=== PATIENT | male | born 1990 | race Caucasian/White ===

== ENCOUNTER 2018-05-01 11:26 | Emergency (ER) | payer SELFPAY ==
[~2018-05-01] VITALS: Ht 182.9 cm; Wt 89.8 kg
[~2018-05-01 11:26] MED LIST: ACHD5005 PO; AMOX500C2 PO; BENZ100C18 PO; CIPR7.5D2 OT; DOXY100C2 PO; HYDR-3720 PO; HYDR1TAB PO; PENI500T PO; SULF1TAB38 PO
--- OUTSIDE RECORDS SUMMARY | 2018-05-01 11:30 | XMS REPORT ---
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 43268829 ALLERGIES No Known Allergies ENCOUNTERS Encounter Location Date Diagnosis [address] [id number] Dec, Blister (nonthermal) of oral cavity, initial encounter S00.522A ; Chronic gingivitis, plaque induced K05.10 and Acute pain of left shoulder M25.512 [id number] [place] [address] November, Constipation K59.[address] [id number] 15 Nov, 2017 Low back pain M54.5 ; Other chronic pain G89.29 ; Blister (nonthermal) of oral cavity, initial encounter S00.522A ; Chronic gingivitis, plaque induced K05.10 and Bilateral otitis media with effusion H65.93 [facility] [address] [address] November, Other chronic pain G89.29 [id number] [place] [address] Oct, Mood disorder F39 [address] [id number] Oct, Low back pain M54.5 ; Other chronic pain G89.29 and Mood disorder F39 [facility] [address] [place] [id number] Apr, Mood disorder F39 [facility] [address] [facility] [id number], [place] [address] 19 Mar, 2017 Mood disorder F39 [facility] [address] [facility] [id number] [address] 05 Mar, 2017 Mood disorder F39 and Slow transit constipation K59.01 [facility] [address] [place] [id number] Jul, Mood disorder F39 ; Slow transit constipation K59.01 and Aphthous ulcer of mouth K12.0 [place] [place] [id number] Jun, Slow transit constipation K59.01 and Mood disorder F39 [facility] [address] [id number] [id number] Dec, Dental examination V72.2 IMMUNIZATIONS No Known Immunizations SOCIAL HISTORY Never Assessed REASON FOR VISIT half-way PLAN OF CARE VITAL SIGNS Height 72 in 2017-12-27 Weight 232 lbs 2017-12-27 Heart Rate 72 bpm 2017-12-27 Respiratory Rate 16 2017-12-27 BMI 31.46 kg/m2 2017-12-27 Blood pressure systolic 118 mmHg 2017-12-27 Blood pressure diastolic 54 mmHg 2017-12-27 MEDICATIONS Medication Instructions Dosage Frequency Start Date End Date Duration Status Augmentin 875-125 MG Orally 2 times a day 1 tablet 12h Dec,Dec 10 day(s) Active PredniSONE 20 mg Orally Once a day 2 tablets 24h Dec, Dec, 05 days Active RESULTS No Results PROCEDURES No Known procedures INSTRUCTIONS MEDICATIONS ADMINISTERED No Known Medications
--- OUTSIDE RECORDS SUMMARY | 2018-05-01 11:31 | XMS REPORT ---
Author Author PRESLEY ANN Organization 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 [id number] [place] [address] Oct, Mood disorder F39 [address] [place] [id number] Oct, Low back pain M54.5 ; Other chronic pain G89.29 and Mood disorder F39 [facility] [address] [place], [place] [id number] Apr, Mood disorder F39 [facility] [address] [place] [address] Mar, Mood disorder F39 [facility] [id number] [place] [address] Mar, Mood disorder F39 and Slow transit constipation K59.01 [address] [place] [id number] Jul, Mood disorder F39 ; Slow transit constipation K59.01 and Aphthous ulcer of mouth K12.[address] [id number] Jun, Slow transit constipation K59.01 and Mood disorder F39 [facility] [address] [id number] [id number] Dec, Dental examination V72.2 IMMUNIZATIONS No Known Immunizations SOCIAL HISTORY Never Assessed REASON FOR VISIT group home rx PLAN OF CARE VITAL SIGNS MEDICATIONS Medication Instructions Dosage Frequency Start Date End Date Duration Status Imipramine HCl 50 MG Orally at bedtime 1 tablet at bedtime Jul, 30 day(s) Active RESULTS No Results PROCEDURES No Known procedures INSTRUCTIONS MEDICATIONS ADMINISTERED No Known Medications
--- OUTSIDE RECORDS SUMMARY | 2018-05-01 11:31 | XMS REPORT ---
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 61916090 Problem Slow transit constipation K59.01 Active 74030902 Problem Mood disorder F39 Active 84016962 ALLERGIES No Information ENCOUNTERS Encounter Location Date Diagnosis [address] [place] [id number] Oct, Low back pain M54.5 ; Other chronic pain G89.29 and Mood disorder F39 [address] [place] [id number] Apr, Mood disorder F39 [facility] [id number] [address] Mar, Mood disorder F39 [facility] [id number] [address] Mar, Mood disorder F39 and Slow transit constipation K59.01 [address] [place] [id number] Jul, Mood disorder F39 ; Slow transit constipation K59.01 and Aphthous ulcer of mouth K12.0 [place] [address] [place] [phone] Jun, Slow transit constipation K59.01 and Mood disorder F39 [facility] [id number] [place] [id number] Dec, Dental examination V72.2 IMMUNIZATIONS No Known Immunizations SOCIAL HISTORY Never Assessed REASON FOR VISIT [facility] rx PLAN OF CARE VITAL SIGNS MEDICATIONS Medication Instructions Dosage Frequency Start Date End Date Duration Status MiraLax - Orally Once a day as needed 17 grams 05 Mar, 2017 Active Imipramine HCl 25 MG Orally at bedtime 1 tablet at bedtime Jul, 30 day(s) Active RESULTS No Results PROCEDURES No Known procedures INSTRUCTIONS MEDICATIONS ADMINISTERED No Known Medications
--- OUTSIDE RECORDS SUMMARY | 2018-05-01 11:31 | XMS REPORT ---
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 27149669 ALLERGIES No Known Allergies ENCOUNTERS Encounter Location Date Diagnosis [address] [id number] Dec, Blister (nonthermal) of oral cavity, initial encounter S00.522A ; Chronic gingivitis, plaque induced K05.10 and Acute pain of left shoulder M25.512 [id number] [place] [address] November, Constipation K59.[address] [id number] 15 Nov, 2017 Low back pain M54.5 ; Other chronic pain G89.29 ; Blister (nonthermal) of oral cavity, initial encounter S00.522A ; Chronic gingivitis, plaque induced K05.10 and Bilateral otitis media with effusion H65.93 [facility] [address] [address] November, Other chronic pain G89.29 [id number] [place] [address] Oct, Mood disorder F39 [address] [id number] Oct, Low back pain M54.5 ; Other chronic pain G89.29 and Mood disorder F39 [facility] [address] [place] [id number] 10 Apr, 2017 Mood disorder F39 [facility] [address] [facility] [id number] [address] 19 Mar, 2017 Mood disorder F39 [facility] [address] [facility] [id number] [address] 05 Mar, 2017 Mood disorder F39 and Slow transit constipation K59.01 [facility] [address] [place] [id number] Jul, Mood disorder F39 ; Slow transit constipation K59.01 and Aphthous ulcer of mouth K12.0 [address] [place] [id number] Jun, Slow transit constipation K59.01 and Mood disorder F39 [facility] [address] [id number] [id number] Dec, Dental examination V72.2 IMMUNIZATIONS No Known Immunizations SOCIAL HISTORY Never Assessed REASON FOR VISIT RESIDENTIAL PLAN OF CARE VITAL SIGNS Height 72 in 2017-12-06 Weight 224 lbs 2017-12-06 Heart Rate 60 bpm 2017-12-06 Respiratory Rate 16 2017-12-06 BMI 30.38 kg/m2 2017-12-06 Blood pressure systolic 116 mmHg 2017-12-06 Blood pressure diastolic 70 mmHg 2017-12-06 MEDICATIONS Medication Instructions Dosage Frequency Start Date End Date Duration Status Diclofenac Sodium 75 MG Orally Twice a day 1 tablet with food or milk 12h November, Dec, 30 day(s) Active PredniSONE 20 mg Orally Once a day 2 tablets 24h November, November, 05 days Active Amoxicillin 500 mg Orally 2 times a day 2 tablets 12h November,November 10 day(s) Active RESULTS No Results PROCEDURES No Known procedures INSTRUCTIONS MEDICATIONS ADMINISTERED No Known Medications
--- OUTSIDE RECORDS SUMMARY | 2018-05-01 11:31 | XMS REPORT ---
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 04977635 Problem Slow transit constipation K59.01 Active 32720753 Problem Mood disorder F39 Active 85811606 ALLERGIES Unknown Allergies SOCIAL HISTORY No smoking Hx information available PLAN OF CARE VITAL SIGNS Height 72 in 2016-07-06 Weight 218 lbs 2016-07-06 Heart Rate 64 bpm 2016-07-06 Respiratory Rate 16 2016-07-06 BMI 29.56 kg/m2 2016-07-06 Blood pressure systolic 118 mmHg 2016-07-06 Blood pressure diastolic 80 mmHg 2016-07-06 MEDICATIONS Medication Instructions Dosage Frequency Start Date End Date Duration Status Colace 100 MG Orally Once a day 1 capsule as needed 24h Jun, Jul, 30 day(s) Active Mirtazapine 15 MG Orally Once a day 1 tablet at bedtime 24h Jun, 30 day(s) Active RESULTS No Results PROCEDURES Procedure Date Ordered Related Diagnosis Body Site Office Visit, Est Pt., Level 2 Jul 06, 2016 IMMUNIZATIONS No Known Immunizations
--- OUTSIDE RECORDS SUMMARY | 2018-05-01 11:31 | XMS REPORT ---
Author Author PRESLEY ANN Organization 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 51971572 ALLERGIES No Known Allergies ENCOUNTERS Encounter Location Date Diagnosis [address] [id number] Dec, Blister (nonthermal) of oral cavity, initial encounter S00.522A ; Chronic gingivitis, plaque induced K05.10 and Acute pain of left shoulder M25.512 [place] [id number] [place] [address] November, Constipation K59.[address] [id number] 15 Nov, 2017 Low back pain M54.5 ; Other chronic pain G89.29 ; Blister (nonthermal) of oral cavity, initial encounter S00.522A ; Chronic gingivitis, plaque induced K05.10 and Bilateral otitis media with effusion H65.93 [facility] [address] [address] November, Other chronic pain G89.29 [id number] [place] [address] Oct, Mood disorder F39 [address] [id number] Oct, Low back pain M54.5 ; Other chronic pain G89.29 and Mood disorder F39 [facility] [address] [place] [id number] Apr, Mood disorder F39 [facility] [id number] [address] Mar, Mood disorder F39 [facility] [id number] [address] 05 Mar, 2017 Mood disorder F39 and Slow transit constipation K59.01 [facility] [address] [place] [id number] Jul, Mood disorder F39 ; Slow transit constipation K59.01 and Aphthous ulcer of mouth K12.0 [address] [place] [address] Jun, Slow transit constipation K59.01 and Mood disorder F39 [facility] [address] [id number] [address] Dec, Dental examination V72.2 IMMUNIZATIONS No Known Immunizations SOCIAL HISTORY Never Assessed REASON FOR VISIT long-term rx PLAN OF CARE VITAL SIGNS MEDICATIONS Medication Instructions Dosage Frequency Start Date End Date Duration Status Meloxicam 7.5 MG Orally twice a day 1 tablet 12h November, 14 days Active RESULTS No Results PROCEDURES No Known procedures INSTRUCTIONS MEDICATIONS ADMINISTERED No Known Medications
--- OUTSIDE RECORDS SUMMARY | 2018-05-01 11:31 | XMS REPORT ---
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 47190287 Problem Slow transit constipation K59.01 Active 19140796 Problem Mood disorder F39 Active 60617335 ALLERGIES No Known Allergies ENCOUNTERS Encounter Location Date Diagnosis [facility] [address] [address] November, Other chronic pain G89.29 [facility] [address] [address] Oct, Mood disorder F39 [facility] [address] [place], [place] [id number] Oct, Low back pain M54.5 ; Other chronic pain G89.29 and Mood disorder F39 [facility] [address] [place], [place] [id number] Apr, Mood disorder F39 [facility] [id number] [address] Mar, Mood disorder F39 [facility] [id number] [place] [address] Mar, Mood disorder F39 and Slow transit constipation K59.01 [facility] [address] [place], [place] [id number] Jul, Mood disorder F39 ; Slow transit constipation K59.01 and Aphthous ulcer of mouth K12.0 [facility] [address] [place], [place] [address] Jun, Slow transit constipation K59.01 and Mood disorder F39 [facility] [address] [facility] [id number] [address] Dec, Dental examination V72.2 IMMUNIZATIONS No Known Immunizations SOCIAL HISTORY Never Assessed REASON FOR VISIT RETIREMENT PLAN OF CARE VITAL SIGNS Height 72 in 2017-05-03 Weight 262 lbs 2017-05-03 Heart Rate 76 bpm 2017-05-03 Respiratory Rate 16 2017-05-03 BMI 35.53 kg/m2 2017-05-03 Blood pressure systolic 110 mmHg 2017-05-03 Blood pressure diastolic 64 mmHg 2017-05-03 MEDICATIONS Medication Instructions Dosage Frequency Start Date End Date Duration Status Paroxetine HCl 20 MG Orally Once a day 1 tablet in the morning 24h Apr, 30 day(s) Active Mirtazapine 30 MG Orally at bedtime 1 tablet at bedtime Apr, 30 day(s) Active RESULTS No Results PROCEDURES No Known procedures INSTRUCTIONS MEDICATIONS ADMINISTERED No Known Medications
--- OUTSIDE RECORDS SUMMARY | 2018-05-01 11:31 | XMS REPORT ---
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 32635237 ALLERGIES No Known Allergies ENCOUNTERS Encounter Location Date Diagnosis [address] [id number] Dec, Blister (nonthermal) of oral cavity, initial encounter S00.522A ; Chronic gingivitis, plaque induced K05.10 and Acute pain of left shoulder M25.512 [id number] [place] [address] November, Constipation K59.[address] [id number] 15 Nov, 2017 Low back pain M54.5 ; Other chronic pain G89.29 ; Blister (nonthermal) of oral cavity, initial encounter S00.522A ; Chronic gingivitis, plaque induced K05.10 and Bilateral otitis media with effusion H65.93 [facility] [address], [place] [address] November, Other chronic pain G89.29 [id number] [place] [address] Oct, Mood disorder F39 [address] [id number] Oct, Low back pain M54.5 ; Other chronic pain G89.29 and Mood disorder F39 [facility] [address] [place], [place] [address] Apr, Mood disorder F39 [facility] [address] [facility] [id number], [place] [address] 19 Mar, 2017 Mood disorder F39 [facility] [address] [facility] [id number] [address] 05 Mar, 2017 Mood disorder F39 and Slow transit constipation K59.01 [facility] [address] [place], [place] [id number] Jul, Mood disorder F39 ; Slow transit constipation K59.01 and Aphthous ulcer of mouth K12.0 [address] [place] [address] Jun, Slow transit constipation K59.01 and Mood disorder F39 [facility] [address] [id number] [address] Dec, Dental examination V72.2 IMMUNIZATIONS No Known Immunizations SOCIAL HISTORY Never Assessed REASON FOR VISIT intermediate PLAN OF CARE VITAL SIGNS Height 72 in 2017-11-01 Weight 226 lbs 2017-11-01 Heart Rate 80 bpm 2017-11-01 Respiratory Rate 16 2017-11-01 BMI 30.65 kg/m2 2017-11-01 Blood pressure systolic 100 mmHg 2017-11-01 Blood pressure diastolic 68 mmHg 2017-11-01 MEDICATIONS Medication Instructions Dosage Frequency Start Date End Date Duration Status Mirtazapine 30 MG Orally at bedtime 1 tablet at bedtime Apr, 30 day(s) Active Naproxen 500 MG Orally every 12 hrs 1 tablet with food or milk as needed 12h Oct, Active Paroxetine HCl 20 MG Orally Once a day 1 tablet in the morning 24h Apr, 30 day(s) Active RESULTS No Results PROCEDURES No Known procedures INSTRUCTIONS MEDICATIONS ADMINISTERED No Known Medications
--- OUTSIDE RECORDS SUMMARY | 2018-05-01 11:31 | XMS REPORT ---
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 00857113 ALLERGIES No Known Allergies ENCOUNTERS Encounter Location Date Diagnosis [address] [id number] Dec, Blister (nonthermal) of oral cavity, initial encounter S00.522A ; Chronic gingivitis, plaque induced K05.10 and Acute pain of left shoulder M25.512 [place] [id number] [place] [address] November, Constipation K59.[address] [id number] 15 Nov, 2017 Low back pain M54.5 ; Other chronic pain G89.29 ; Blister (nonthermal) of oral cavity, initial encounter S00.522A ; Chronic gingivitis, plaque induced K05.10 and Bilateral otitis media with effusion H65.93 [facility] [address]100[place] [address] November, Other chronic pain G89.29 [address] [id number] [place] [address] Oct, Mood disorder F39 [address] [id number] Oct, Low back pain M54.5 ; Other chronic pain G89.29 and Mood disorder F39 [facility] [address] [place], [place] [id number] Apr, Mood disorder F39 [facility] [id number] [address] Mar, Mood disorder F39 [facility] [id number] [address] 05 Mar, 2017 Mood disorder F39 and Slow transit constipation K59.01 [facility] [address] [place], [place] [address] Jul, Mood disorder F39 ; Slow transit constipation K59.01 and Aphthous ulcer of mouth K12.0 [place] [address] [place] [id number] Jun, Slow transit constipation K59.01 and Mood disorder F39 [facility] [address] [id number] [id number] Dec, Dental examination V72.2 IMMUNIZATIONS No Known Immunizations SOCIAL HISTORY Never Assessed REASON FOR VISIT residential rx PLAN OF CARE VITAL SIGNS MEDICATIONS Medication Instructions Dosage Frequency Start Date End Date Duration Status Lexapro 10 MG Orally Once a day 1 tablet 24h Oct, 30 day(s) Active RESULTS No Results PROCEDURES No Known procedures INSTRUCTIONS MEDICATIONS ADMINISTERED No Known Medications
--- OUTSIDE RECORDS SUMMARY | 2018-05-01 11:31 | XMS REPORT ---
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 41280159 ALLERGIES No Known Allergies ENCOUNTERS Encounter Location Date Diagnosis [address] [id number] Dec, Blister (nonthermal) of oral cavity, initial encounter S00.522A ; Chronic gingivitis, plaque induced K05.10 and Acute pain of left shoulder M25.512 [place] [id number] [place] [phone] November, Constipation K59.[address] [id number] 15 Nov, 2017 Low back pain M54.5 ; Other chronic pain G89.29 ; Blister (nonthermal) of oral cavity, initial encounter S00.522A ; Chronic gingivitis, plaque induced K05.10 and Bilateral otitis media with effusion H65.93 [facility] [address] [address] November, Other chronic pain G89.29 [place] [id number] [place] [address] Oct, Mood disorder F39 [address] [id number] Oct, Low back pain M54.5 ; Other chronic pain G89.29 and Mood disorder F39 [facility] [address] [place], [place] [id number] Apr, Mood disorder F39 [facility] [id number] [address] 19 Mar, 2017 Mood disorder F39 [facility] [address] [facility] [id number] [address] 05 Mar, 2017 Mood disorder F39 and Slow transit constipation K59.01 [facility] [address] [place] [id number] Jul, Mood disorder F39 ; Slow transit constipation K59.01 and Aphthous ulcer of mouth K12.0 [place] [address] [place] [id number] Jun, Slow transit constipation K59.01 and Mood disorder F39 [facility] [address] [id number] [id number] Dec, Dental examination V72.2 IMMUNIZATIONS No Known Immunizations SOCIAL HISTORY Never Assessed REASON FOR VISIT long-term rx PLAN OF CARE VITAL SIGNS MEDICATIONS Medication Instructions Dosage Frequency Start Date End Date Duration Status Multivitamin Men - as directed November, Active MiraLax - Orally once daily as needed 1 packet mixed with 8 ounces of fluid November, Dec, 30 day(s) Active RESULTS No Results PROCEDURES No Known procedures INSTRUCTIONS MEDICATIONS ADMINISTERED No Known Medications
[2018-05-01 11:35] VITALS: BP 136/89
[2018-05-01] MEDS ORDERED: NS IV 1000 ML 1,000 ML IV ONE (11:46)
[2018-05-01 12:12] LABS: BASOPHILS % (AUTO) 0 % (0-10); EOSINOPHILS % (AUTO) 0 % (0-10); HEMATOCRIT 44 % (40-54); LYMPHOCYTES # (AUTO) 1.8 X 10^3 (1.0-4.0); LYMPHOCYTES % (AUTO) 14 % (12-44); MEAN CORPUSCULAR HEMOGLOBIN 31 PG (25-34); MEAN CORPUSCULAR HGB CONC 37 G/DL (32-36); MEAN CORPUSCULAR VOLUME 84 FL (80-99); MONOCYTES # (AUTO) 0.9 X 10^3 (0.0-1.0); MONOCYTES % (AUTO) 7 % (0-12); NEUTROPHILS # (AUTO) 10.3 X 10^3 (1.8-7.8); NEUTROPHILS % (AUTO) 79 % (42-75); PLATELET COUNT 276 10^3/uL (130-400); RED CELL DISTRIBUTION WIDTH 12.7 % (10.0-14.5)
--- NOTE | 2018-05-01 12:23 | ED General ---
General Stated Complaint: STROKE Source of Information: Patient, Family (friend) Exam Limitations: No Limitations History of Present Illness Date Seen by Provider: May 01, 2018 Time Seen by Provider: 11:45 Initial Comments Patient is a 27-year-old male presents to the emergency room with complaints of a stroke. He is alert and oriented and ambulated to ED room 4 without difficulty. He is playing a game on his phone and has to be asked to put the phone down to be examined. When asked what symptoms he has he reports that his hands bilaterally and face are tingly and that he is also having some chest pain. He states that this all started this morning when he woke up. He denies any shortness of breath, nausea, vomiting, diaphoresis. He is very disheveled and dirty, he is barefoot in his feet are covered in mud. He is accompanied by a young female who reports that she has a family friend and he called her to come pick him up and he was walking down a dirt road outside of [facility]. When asked if he uses any illicit drugs he reports a long history of marijuana and methamphetamine use. He last used early this morning. Timing/Duration: 4-6 Hours Associated Systoms: Chest Pain Allergies and Home Medications Allergies Coded Allergies: No Known Allergies (Unverified Allergy, Mild, 02/16/09) Home Medications Amoxicillin 500 Mg Capsule, 1 EACH PO TID Prescribed by: RENÉ HUTCHINSON MD on 07/22/09 1223 Benzonatate 100 Mg Capsule, 100 MG PO TID FOR COUGH Prescribed by: EVERT JUAREZ on 12/10/09 142 Ciprofloxacin Hcl/Dexameth 7.5 Ml Drops.susp, 7.5 ML OT BID Prescribed by: RENÉ HUTCHINSON MD on 07/22/09 1223 Doxycycline Hyclate 100 Mg Capsule, 1 EACH PO BID FOR INFECTION Prescribed by: EVERT JUAREZ on 12/10/09 1421 Hydrocodone Bit/Acetaminophen 1 Each Tablet, 1-2 EACH PO Q6H PRN Prescribed by: CARMELA ALIRD on 10/04/101817 Penicillin V Potassium 500 Mg Tablet, 1 TAB PO QID Prescribed by: CARMELA LAIRD on 10/04/101817 Patient Home Medication List Home Medication List Reviewed: Yes Review of Systems Review of Systems Constitutional: see HPI; No chills, No fever Cardiovascular: see HPI, chest pain Psychiatric/Neurological: See HPI, Numbness, Tingling All Other Systems Reviewed Negative Unless Noted: Yes Past [place]-Tfcccg-Dkbryc Hx Past Med/Social Hx: Reviewed Nursing Past Med/Soc Hx Family Medical History Reviewed Nursing Family Hx Physical Exam Vital Signs Vital Signs - First Documented 05/01/18 11:35 Temp 98.2 Pulse 112 Resp 22 B/P (MAP) 136/89 (105) Pulse Ox 98 O2 Delivery Room Air Capillary Refill : Height, Weight, BMI Height: '" Weight: lbs. oz. kg; BMI Method:Stated General Appearance: No Apparent Distress, WD/WN Eyes: Bilateral Eye Normal Inspection, Bilateral Eye PERRL, Bilateral Eye EOMI HEENT: PERRL/EOMI, TMs Normal, Normal ENT Inspection, Pharynx Normal, Other ( Very dry mucous membranes) Neck: Full Range of Motion, Normal Inspection, Non Tender, Supple, Carotid Bruit Respiratory: Chest Non Tender, Lungs Clear, Normal Breath Sounds, No Accessory Muscle Use, No Respiratory Distress Cardiovascular: Regular Rate, Rhythm, No Edema, No Gallop, No JVD, No Murmur, Normal Peripheral Pulses Gastrointestinal: Normal Bowel Sounds, No Organomegaly, No Pulsatile Mass, Non Tender, Soft Extremity: Normal Capillary Refill, Normal Inspection, Normal Range of Motion, Non Tender, No Calf Tenderness, No Pedal Edema Neurologic/Psychiatric: Alert, Oriented x3, Normal Mood/Affect Skin: Normal Color, Warm/Dry Progress/Results/Core Measures Suspected Sepsis SIRS Temperature: Pulse: Respiratory Rate: Blood Pressure / Mean: Results/Orders Lab Results My Orders Medications Given in ED Vital Signs/I&O Capillary Refill : Progress Note : Time: 13:21 Progress Note The patient was found to be ambulating in the hallway without difficulty and when questioned by nursing staff he reports that he just wants to leave. I went and spoke to the patient and I informed him of the risks of leaving and the benefits of staying and he is still adamant on leaving. He has a cdl team truck driver to take him home. AMA papers were signed. ECG EKG : EKG Time: 11:51 Rate: 101 Rhythm: S.Tach Intervals: Normal ECG Comparisson: No Previous ECG Available ECG Impression: Normal Diagnostic Imaging Diagonstic Imaging: Xray Plain Films/CT/US/NM/MRI: chest Comments NAME: KONG VAZQUEZ [facility] REC#: [id number] PHYSICIAN: NHI TORRES CC: NHI TORRES; FARZANEH GUTIERREZ MD Page 1 of 1 RADIOLOGY REPORT VIA [facility] [place] [place] CC: NHI TORRES; FARZANEH GUTIERREZ MD Page 1 of 1 RADIOLOGY REPORT NAME: KONG VAZQUEZ [facility] REC#: [id number] PT STATUS: REG ER : 1990 PHYSICIAN: NHI TORRES ADMIT DATE: 05/01/18/ER Signed Date of Exam: 05/01/18 CHEST 1 VIEW, AP/PA ONLY INDICATION: Confusion. Comparison made with prior examination 07/10/2009. FINDINGS: The heart size, mediastinal configuration, and pulmonary vascularity are within normal limits. There is no pleural effusion, pneumothorax, or pneumonia. The osseous structures are unremarkable. IMPRESSION: No acute cardiopulmonary abnormality. Dictated by: Dictated on workstation # [id number] Dict: 05/01/18 1230 Trans: 05/01/18 1250 Interpreted by: FARZANEH GUTIERREZ MD Electronically signed by: FARZANEH GUTIERREZ MD 05/01/18 1250 Reviewed: Reviewed by Me Departure Impression Primary Impression: Rhabdomyolysis Additional Impressions: Substance abuse Left against medical advice Disposition: 07 AGAINST MEDICAL ADVICE Condition: Stable/Unchanged Departure-Patient Inst. Referrals: NO,LOCAL PHYSICIAN (PCP/Family) Primary Care Physician NHI TORRES May 01, 2018 12:22
[2018-05-01 12:33] LABS: ALANINE AMINOTRANSFERASE 27 U/L (0-55); ALBUMIN 5.1 GM/DL (3.2-4.5); ALKALINE PHOSPHATASE 57 U/L (40-136); BILIRUBIN,TOTAL 1.1 MG/DL (0.1-1.0); BUN/CREATININE RATIO 16; CALCIUM 10.1 MG/DL (8.5-10.1); CARBON DIOXIDE 23 MMOL/L (21-32); CHLORIDE 105 MMOL/L (98-107); CREATINE KINASE 662 U/L (30-200); CREATININE SERUM 1.03 MG/DL (0.60-1.30); GFR ESTIMATED > 60; GLUCOSE 105 MG/DL (70-105); POTASSIUM 3.9 MMOL/L (3.6-5.0); SODIUM 141 MMOL/L (135-145); TOTAL PROTEIN 8.1 GM/DL (6.4-8.2)
--- NOTE | 2018-05-01 12:33 | Diagnostic Imaging Report ---
INDICATION: Confusion. Comparison made with prior examination 07/10/2009. FINDINGS: The heart size, mediastinal configuration, and pulmonary vascularity are within normal limits. There is no pleural effusion, pneumothorax, or pneumonia. The osseous structures are unremarkable. IMPRESSION: No acute cardiopulmonary abnormality. Dictated by: Dictated on workstation # [id number]
[2018-05-01 12:42] LABS: MYOGLOBIN SERUM 112.3 NG/ML (10.0-92.0)
[2018-05-01] MEDS ORDERED: LORazepam INJ 2 MG/ML (ATIVAN) VIAL IVP ONE (12:45)
[2018-05-01] MEDS ORDERED: NS IV 1000 ML 1,000 ML IV SCH (13:15)
== END 2018-05-01 13:24 | disposition left against medical advice (07) ==
LOC: EDUNIT# 11:26 → ER 11:27
DX: M62.82 Rhabdomyolysis (principal); F15.10 Other stimulant abuse, uncomplicated; F12.10 Cannabis abuse, uncomplicated
CPT/HCPCS: 36415; 71045; 80053; 80320; 82550; 83874; 84484; 85025; 93005; 93041